=== PATIENT | female | born 1970 | race Caucasian/White ===

== ENCOUNTER 2024-05-07 16:20 | Emergency (ER) | payer BC ==
[~2024-05-07] VITALS: Wt 56.7 kg
[2024-05-07 17:10] VITALS: BP 104/53
[2024-05-07] MEDS ORDERED: methylPREDNISolone sod succ 125 MG VIAL IM ONE (17:55)
[2024-05-07] MEDS ORDERED: PREDNISONE20 M1 PO (18:02)
== END 2024-05-07 18:11 | disposition home or self-care (01) ==
LOC: ED 16:20
DX: L25.9 Unspecified contact dermatitis, unspecified cause (principal); J45.909 Unspecified asthma, uncomplicated